=== PATIENT | male | born 1960 | race Caucasian/White ===

== ENCOUNTER → 2020-11-10 | Outpatient (CLI) | payer MEDICARE | END | disposition home or self-care (01) | LOC: CPPFTMAIN 14:31 | PROVIDERS: ATTEND Otolaryngology | DX: J38.6 Stenosis of larynx (principal) | CPT/HCPCS: 94060; 94726; 94729 ==

== ENCOUNTER → 2020-11-26 | Outpatient (CLI) | payer MEDICARE ==
--- NOTE | 2020-11-26 13:26 | FL ---
EXAMINATION TYPE: FL barium swallow w video DATE OF EXAM: 11/26/2020 CLINICAL HISTORY: 60-year-old male R13.1, dysphagia, history of tracheal resection in 2020 after comp lications from intubation. TECHNIQUE: Deglutition study is performed utilizing thin liquid barium, honey and nectar thick liqui d barium, barium thick applesauce, and barium coated cracker. COMPARISON: None. Total fluoroscopy time: 3 minutes 2 seconds. Total images: None. Real-time fluoroscopy support was provided to speech pathology. FINDINGS: Limited epiglottic inversion. Prominent pharyngeal piriform sinus residuals. The residuals become mor e extensive with more viscous consistencies. The oral and pharyngeal phases show satisfactory initiation and propagation with all modalities teste d. Normal mastication is seen with solid modalities tested. There is silent aspiration with thin li quids. Transient penetration with nectar liquids. The patient uses a chin to maneuver at all times. N o other penetration or aspiration seen. IMPRESSION: 1. Silent aspiration with thin liquids and transient penetration with nectar liquid. 2. Prominent residuals which increase as the ingested material becomes more viscus. 3. Please refer to speech therapist notes for further details if necessary.
== END ==
LOC: RADFLMAIN 10:58
PROVIDERS: ATTEND Otolaryngology
DX: R13.10 Dysphagia, unspecified (principal); R68.89 Other general symptoms and signs
CPT/HCPCS: 74230

== ENCOUNTER → 2021-09-02 | Outpatient (CLI) | payer MEDICARE ==
--- NOTE | 2021-09-02 16:31 | XR ---
EXAMINATION TYPE: XR chest 2V DATE OF EXAM: 09/02/2021 COMPARISON: NONE HISTORY: J 18.9 TECHNIQUE: Frontal and lateral views of the chest are obtained. FINDINGS: There is patchy density questioned in the left mid lung, no pneumothorax or pleural effusi on. The cardiac silhouette size is within normal limits. Patient is post median sternotomy. There is a generator in the left pectoral region, lead in the right atrium and ventricle. Patient is rotated. Right hemidiaphragm is elevated. The osseous structures are intact. IMPRESSION: Correlate for pneumonia, follow-up recommended A Spearman level critical message alert has been initiated for Jenaro Story DO via the [employer] Critical Results System on 09/02/2021 4:28 PM. This message alert has been sent to Jenaro samaniego DO via the preferences provided by the clinician for the receipt of Radiology Critical Findings . Message ID [id number].
== END | disposition home or self-care (01) ==
LOC: RADXRMAIN 14:51
PROVIDERS: ATTEND Family Medicine
DX: J18.9 Pneumonia, unspecified organism (principal)
CPT/HCPCS: 71046

== ENCOUNTER → 2021-10-12 | Outpatient (CLI) | payer MEDICARE ==
--- NOTE | 2021-10-12 14:49 | XR ---
EXAMINATION TYPE: XR chest 2V DATE OF EXAM: 10/12/2021 COMPARISON: 09/02/21 HISTORY: Shortness of breath TECHNIQUE: Frontal and lateral views of the chest are obtained. FINDINGS: Scattered senescent parenchymal changes noted. Hyperinflation compatible with COPD. No evidence for infiltrate. No evidence for atelectasis. Heart size is stable. Mediastinal structures are stable and grossly unremarkable. No evidence for hilar prominence. Degenerative changes dorsal spine. IMPRESSION: 1. No evidence for acute pulmonary disease.
--- NOTE | 2021-10-12 14:50 | XR ---
EXAMINATION TYPE: XR shoulder complete RT DATE OF EXAM: 10/12/2021 CLINICAL HISTORY: pain TECHNIQUE: Three views of the right shoulder are obtained. COMPARISON: None FINDINGS: There is no acute fracture/dislocation evident. The acromioclavicular and glenohumeral nabila int spaces appear mildly narrowed. The visualized ribs are intact and unremarkable. IMPRESSION: 1. There is no acute fracture or dislocation. ICD 10 NO FRACTURE, INITIAL EVALUATION
--- NOTE | 2021-10-12 14:51 | XR ---
EXAMINATION TYPE: XR lumbar spine 2 or 3V DATE OF EXAM: 10/12/2021 CLINICAL HISTORY: pain TECHNIQUE: Three views of the lumbar spine are submitted. COMPARISON: None. FINDINGS: There are 5 lumbar type vertebral bodies identified. The lumbar spine shows satisfactory alignment w ithout evidence of acute fracture or dislocation. Vertebral body heights are within normal limits. Mild degenerative disc space narrowing and facet joint arthropathy. The overlying soft tissue appear s unremarkable. IMPRESSION: No acute fracture or dislocation is seen in the lumbar spine. ICD 10 NO FRACTURE, INITIAL EVALUATION
== END | disposition home or self-care (01) ==
LOC: RADXRMAIN 14:24
PROVIDERS: ATTEND Family Medicine
DX: M54.50 Low back pain, unspecified (principal); M25.511 Pain in right shoulder; R06.02 Shortness of breath
CPT/HCPCS: 71046; 72100

== ENCOUNTER → 2021-11-10 | Outpatient (CLI) | payer MEDICARE ==
[~2021-11-10] MED LIST: IODINE/POTASS IOD (LUGOLS) BOTTLE TOPICAL ONE
--- NOTE | 2021-11-10 16:12 | NM ---
EXAMINATION TYPE: NM DatScan Brain SPECT DATE OF EXAM: 11/10/2021 COMPARISON: NONE HISTORY: Tremor, G 25.0 TECHNIQUE: 10 drops of Lugol's solution was administered 1 hour prior to injection as a thyroid bloc cesar agent. After the administration of 4.59 mCi I-123 Ioflupane DaTscan. Images obtained 3 hours p ost injection. SPECT images of the brain were acquired with axial and coronal reconstructions. FINDINGS: Abnormal striatal uptake is noted bilaterally. IMPRESSION: Abnormal CORNELIO scan
== END | disposition home or self-care (01) ==
LOC: RADNMMAIN 10:50
PROVIDERS: ATTEND Psychiatry & Neurology Neurology
DX: R94.02 Abnormal brain scan (principal); G25.0 Essential tremor
CPT/HCPCS: 78803; A9584